=== PATIENT | male | born 1960 | race Caucasian/White ===

== ENCOUNTER 2018-11-27 03:01 | Inpatient (IN) | payer MEDICAID, OTHER ==
[2018-11-27 03:20] LABS: ADD MAN DIFF? NO
[2018-11-27 03:21] LABS: BASOPHIL # 0.1 10^3/ul (0.0-0.1); BASOPHILS % 0.4 % (0.0-2.0); EOSINOPHILS # 0.1 10^3/ul (0.0-0.5); EOSINOPHILS % 0.5 % (0.0-7.0); HEMATOCRIT 44.2 % (42.0-52.0); HEMOGLOBIN 14.9 g/dl (14.0-18.0); LYMPHOCYTES % 14.2 % (15.0-51.0); MEAN CORPUSCULAR HEMOGLOBIN 31.6 pg (29.0-33.0); MEAN CORPUSCULAR HGB CONC 33.7 g/dl (32.0-37.0); MEAN CORPUSCULAR VOLUME 93.6 fl (82.0-101.0); MEAN PLATELET VOLUME 10.2 fl (7.4-10.4); MONOCYTE # 0.8 10^3/ul (0.3-0.9); MONOCYTES % 5.4 % (0.0-11.0); NEUTROPHIL # 11.1 10^3/ul (1.6-7.5); PLATELET COUNT 248 10^3/UL (140-415); RED BLOOD COUNT 4.72 10^6/ul (4.70-6.10)
[2018-11-27 03:21] LABS: WHITE BLOOD COUNT 14.1 10^3/ul (4.8-10.8)
[2018-11-27] MEDS: ASPIRIN 325 MG TAB PO (03:21)
[2018-11-27] MEDS ORDERED: LIDOCAINE 1% (MDV) 20 ML INJ (03:37)
[2018-11-27] MEDS ORDERED: IODIXANOL LOCM 100 ML BTL (03:37)
[2018-11-27] MEDS ORDERED: HEPARIN 1000 UNITS/ML 10 ML INJ (03:37)
[2018-11-27 03:38] LABS: ANION GAP 9 (5-13); BLOOD UREA NITROGEN 19 mg/dl (7-20); CALCIUM 10.9 mg/dl (8.4-10.2); CARBON DIOXIDE 26 mmol/L (21-31); CHLORIDE 105 mmol/L (97-110); CREATININE 0.94 mg/dl (0.61-1.24); Estimated GFR > 60 mL/min (>60); GLUCOSE 199 mg/dl (70-220); SODIUM 140 mmol/L (135-144)
[2018-11-27] MEDS ORDERED: FENTAnyl 50 MCG/ML VIAL (03:38)
[2018-11-27] MEDS ORDERED: VERAPAMIL 5 MG INJ (03:38)
[2018-11-27] MEDS ORDERED: MIDAZOLAM 1 MG/ML 2 ML INJ (03:38)
[2018-11-27] MEDS ORDERED: NITROGLYCERIN (IC) 100 MCG/ML INJ ×2 (03:38→04:43)
[2018-11-27 03:52] LABS: TROPONIN-I 0.969 ng/ml (0.000-0.120)
[2018-11-27 03:53] LABS: INR 0.94; PARTIAL THROMBOPLASTIN TIME 27.3 Sec (23.0-35.0); PROTIME 12.7 Sec (11.9-14.9)
[2018-11-27] MEDS ORDERED: EPTIFIBATIDE 100 ML IV (04:11)
[2018-11-27] MEDS ORDERED: LORAZEPAM 2 MG INJ IV (04:30)
[2018-11-27] MEDS ORDERED: MAGNESIUM HYDROXIDE 30ML CUP PO (04:30)
[2018-11-27] MEDS ORDERED: hydrALAzine 20 MG INJ IV (04:30)
[2018-11-27] MEDS ORDERED: ONDANSETRON 4 MG INJ IV (04:30)
[2018-11-27] MEDS ORDERED: NACL 0.9% 3 ML SYG IV (04:30)
[2018-11-27] MEDS ORDERED: DOCUSATE SODIUM 100 MG CAP PO (04:30)
[2018-11-27] MEDS ORDERED: NITROGLYCERIN (SL) 0.4 MG TAB SL (04:30)
[2018-11-27] MEDS ORDERED: TICAGRELOR 90 MG TABLET (04:35)
[2018-11-27] MEDS ORDERED: morphine 2 MG INJ IV (05:30)
[2018-11-27] MEDS: SOD CHLORIDE 0.9% 1,000 ML IV (05:37)
[2018-11-27] MEDS: ALBUTEROL/IPRATROPIUM (NEB) 3 ML AMP HHN (05:41)
[2018-11-27] MEDS: ATORVASTATIN 80 MG TAB PO ×2 (06:09→20:45)
[2018-11-27 07:05] LABS: ETHANOL < 10.0 mg/dl (0-0)
[2018-11-27 08:44] LABS: HEMOGLOBIN A1C 6.3 % (0-5.9)
[2018-11-27] MEDS: LISINOPRIL 5 MG TAB PO (09:00)
[2018-11-27] MEDS: ASPIRIN (EC) 81 MG TAB PO (09:21)
[2018-11-27] MEDS: NICOTINE (21 MG/24 HR) PATCH TRANSDERM (09:22)
[2018-11-27] MEDS: TICAGRELOR 90 MG TABLET PO ×2 (09:30→20:54)
[2018-11-27 09:47] LABS: FREE T4 (FREE THYROXINE) 1.24 ng/dl (0.78-2.44)
[2018-11-27] MEDS: morphine 2 MG INJ IV (11:16)
[2018-11-27] MEDS: FAMOTIDINE 20 MG INJ IV ×2 (11:16→20:45)
[2018-11-27 12:57] LABS: CK INDEX 3.9; CREATINE KINASE 6334 IU/L (23-200)
[2018-11-27] MEDS: LORAZEPAM 2 MG INJ IV (14:36)
[2018-11-27 16:58] LABS: CK INDEX 4.5; CREATINE KINASE 3895 IU/L (23-200)
[2018-11-27] MEDS: FUROSEMIDE 20 MG INJ IV (18:39)
[2018-11-27] MEDS: ACETAMINOPHEN 325 MG TAB PO (20:45)
[2018-11-28 06:08] LABS: ADD MAN DIFF? NO
[2018-11-28 06:31] LABS: BASOPHILS % 0.2 % (0.0-2.0); EOSINOPHILS # 0.1 10^3/ul (0.0-0.5); EOSINOPHILS % 0.6 % (0.0-7.0); HEMATOCRIT 40.3 % (42.0-52.0); HEMOGLOBIN 13.4 g/dl (14.0-18.0); LYMPHOCYTES # 2.8 10^3/ul (0.8-2.9); LYMPHOCYTES % 23.3 % (15.0-51.0); MEAN CORPUSCULAR HEMOGLOBIN 31.4 pg (29.0-33.0); MEAN CORPUSCULAR HGB CONC 33.3 g/dl (32.0-37.0); MEAN CORPUSCULAR VOLUME 94.4 fl (82.0-101.0); MEAN PLATELET VOLUME 11.1 fl (7.4-10.4); MONOCYTES % 8.2 % (0.0-11.0); NEUTROPHIL # 8.1 10^3/ul (1.6-7.5); NEUTROPHILS % 67.4 % (39.0-77.0); PLATELET COUNT 202 10^3/UL (140-415); RED BLOOD COUNT 4.27 10^6/ul (4.70-6.10); RED CELL DISTRIBUTION WIDTH 12.4 % (11.5-14.5)
[2018-11-28 06:39] LABS: HEMOGLOBIN A1C 6.8 % (0-5.9)
[2018-11-28 06:52] LABS: CHOLESTEROL 166 mg/dl (100-200)
[2018-11-28 06:52] LABS: CHOL/HDL RATIO 3.7 RATIO; HDL CHOLESTEROL 44 mg/dl (30-78); LDL CHOLESTEROL,CALCULATED 96 mg/dl; TRIGLYCERIDES 131 mg/dl (0-149)
[2018-11-28 06:54] LABS: ANION GAP 5 (5-13); BLOOD UREA NITROGEN 20 mg/dl (7-20); CALCIUM 10.4 mg/dl (8.4-10.2); CARBON DIOXIDE 27 mmol/L (21-31); CHLORIDE 107 mmol/L (97-110); CREATININE 0.79 mg/dl (0.61-1.24); Estimated GFR > 60 mL/min (>60); GLUCOSE 152 mg/dl (70-220); MAGNESIUM 2.1 mg/dl (1.7-2.5); PHOSPHORUS 2.9 mg/dl (2.5-4.9); SODIUM 139 mmol/L (135-144)
[2018-11-28 07:17] LABS: THYROID STIMULATING HORMONE 0.817 MIU/L (0.465-4.680)
[2018-11-28] MEDS: FAMOTIDINE 20 MG INJ IV ×2 (10:28→20:40)
[2018-11-28] MEDS: NICOTINE (21 MG/24 HR) PATCH TRANSDERM (10:29)
[2018-11-28] MEDS: ASPIRIN (EC) 81 MG TAB PO (10:29)
[2018-11-28] MEDS: SPIRONOLACTONE 25 MG TAB PO (10:29)
[2018-11-28] MEDS: LISINOPRIL 5 MG TAB PO (10:30)
[2018-11-28] MEDS: CLOPIDOGREL 75 MG TAB PO (12:09)
[2018-11-28] MEDS: ATORVASTATIN 80 MG TAB PO (20:40)
[2018-11-28] MEDS: HYDROCODONE/APAP (5/325) TAB PO (20:48)
[2018-11-29 06:30] LABS: ADD MAN DIFF? NO
[2018-11-29 06:45] LABS: WHITE BLOOD COUNT 10.9 10^3/ul (4.8-10.8)
[2018-11-29 06:45] LABS: BASOPHIL # 0.1 10^3/ul (0.0-0.1); BASOPHILS % 0.5 % (0.0-2.0); EOSINOPHILS # 0.2 10^3/ul (0.0-0.5); EOSINOPHILS % 1.9 % (0.0-7.0); HEMATOCRIT 38.9 % (42.0-52.0); HEMOGLOBIN 13.1 g/dl (14.0-18.0); LYMPHOCYTES % 36.9 % (15.0-51.0); MEAN CORPUSCULAR HEMOGLOBIN 31.7 pg (29.0-33.0); MEAN CORPUSCULAR HGB CONC 33.7 g/dl (32.0-37.0); MEAN CORPUSCULAR VOLUME 94.2 fl (82.0-101.0); MEAN PLATELET VOLUME 11.1 fl (7.4-10.4); MONOCYTES % 9.2 % (0.0-11.0); NEUTROPHIL # 5.6 10^3/ul (1.6-7.5); PLATELET COUNT 185 10^3/UL (140-415); RED BLOOD COUNT 4.13 10^6/ul (4.70-6.10); RED CELL DISTRIBUTION WIDTH 12.3 % (11.5-14.5)
[2018-11-29 07:04] LABS: ANION GAP 6 (5-13); BLOOD UREA NITROGEN 26 mg/dl (7-20); CALCIUM 10.2 mg/dl (8.4-10.2); CARBON DIOXIDE 27 mmol/L (21-31); CHLORIDE 106 mmol/L (97-110); CREATININE 0.78 mg/dl (0.61-1.24); Estimated GFR > 60 mL/min (>60); GLUCOSE 133 mg/dl (70-220); POTASSIUM 4.3 mmol/L (3.5-5.1); SODIUM 139 mmol/L (135-144)
[2018-11-29] MEDS: FAMOTIDINE 20 MG TAB PO (08:10)
[2018-11-29] MEDS: SPIRONOLACTONE 25 MG TAB PO (08:10)
[2018-11-29] MEDS: ASPIRIN (EC) 81 MG TAB PO (08:10)
[2018-11-29] MEDS: LISINOPRIL 5 MG TAB PO ×2 (08:11→17:32)
[2018-11-29] MEDS: NICOTINE (21 MG/24 HR) PATCH TRANSDERM (08:11)
[2018-11-29] MEDS: CLOPIDOGREL 75 MG TAB PO (17:31)
== END 2018-11-29 18:00 | disposition home or self-care (01) | DRG 247 ==
LOC: E/R 03:01 → REC 03:30 → ICU 05:25 → 6WM 15:47
PROC: 027236Z Dilation of Coronary Artery, Three Arteries with Three Drug-eluting Intraluminal Devices, Percutaneous Approach (ICD-10-PCS; principal; 2018-11-27 03:30)
PROC: 4A023N7 Measurement of Cardiac Sampling and Pressure, Left Heart, Percutaneous Approach (ICD-10-PCS; 2018-11-27 03:30)
PROC: B211YZZ Fluoroscopy of Multiple Coronary Arteries using Other Contrast (ICD-10-PCS; 2018-11-27 03:30)
PROC: 3E073GC Introduction of Other Therapeutic Substance into Coronary Artery, Percutaneous Approach (ICD-10-PCS; 2018-11-27 03:30)
DX: I21.3 ST elevation (STEMI) myocardial infarction of unspecified site (principal); I25.5 Ischemic cardiomyopathy; I10 Essential (primary) hypertension; F17.200 Nicotine dependence, unspecified, uncomplicated; F10.21 Alcohol dependence, in remission; F41.9 Anxiety disorder, unspecified
CPT/HCPCS: 36415; 71045; 80048; 80061; 80307; 82550; 82553; 83036; 83735; 84100; 84439; 84443; 84484; 85025; 85610; 85730; 92928; 92929; 93005; 93306; 93458; 94664; 97116; 97161; 99285-25